=== PATIENT | male | born 1990 | race Caucasian/White ===

== ENCOUNTER 2022-09-18 01:30 | Emergency (ER) | payer MEDICAID ==
[~2022-09-18] VITALS: Ht 175.3 cm; Wt 95.3 kg
[2022-09-18 01:36] VITALS: BP 130/87; PULSE 89; RESP 16; TEMP 97.7; O2SAT 99
--- NOTE | 2022-09-18 01:40 | NUR ---
TO LOBBY A/W BED AMBULATORY
== END 2022-09-18 01:50 | disposition left against medical advice (07) ==
LOC: MED 01:30
DX: M79.601 Pain in right arm (principal); M79.602 Pain in left arm; Z53.21 Procedure and treatment not carried out due to patient leaving prior to being seen by health care provider
CPT/HCPCS: 99281

== ENCOUNTER 2023-11-13 02:05 | Emergency (ER) | payer MEDICAID ==
[~2023-11-13] VITALS: Ht 175.3 cm; Wt 96.2 kg
[2023-11-13 02:09] VITALS: BP 117/84; PULSE 100; RESP 18; TEMP 97.1; O2SAT 100
[2023-11-13 03:01] VITALS: O2SAT 99
[2023-11-13] MEDS: ACETAMINOPHEN EXTRA STRENGTH 500 MG TAB PO ONE (03:33)
[2023-11-13] MEDS: KETOROLAC 30 MG/ML VIAL IVP ONE (03:33)
[2023-11-13 03:36] LABS: BASOPHILS % (AUTO) 0.3 % (0.0-2.0); EOSINOPHILS % (AUTO) 0.1 % (0.0-4.0); HEMATOCRIT 34.9 % (36-52); HEMOGLOBIN 12.2 g/dL (12.0-18.0); LYMPHOCYTES # (AUTO) 2.2 K/uL (2.0-11.5); LYMPHOCYTES % (AUTO) 26.5 % (20.5-51.1); MEAN CORPUSCULAR HEMOGLOBIN 29 pg (27-31); MEAN CORPUSCULAR HGB CONC 35 g/dL (33-37); MEAN CORPUSCULAR VOLUME 83.6 fL (80-94); MONOCYTES # (AUTO) 1.1 K/uL (0.8-1.0); MONOCYTES % (AUTO) 13.2 % (1.7-9.3); NEUTROPHILS % (AUTO) 59.9 % (42.2-75.2); PLATELET COUNT (AUTO) 244 K/uL (140-450); RED BLOOD CELL COUNT(AUTO) 4.17 MIL/uL (4.20-6.10); RED CELL DISTRIBUTION WIDTH 13.5 % (11.6-13.7); WHITE BLOOD COUNT (AUTO) 8.4 K/uL (4.8-10.8)
[2023-11-13 03:49] LABS: ANION GAP 8.3 (8-16); CALCIUM 8.5 mg/dL (8.5-10.1); CARBON DIOXIDE 32.6 mmol/L (21-32); POTASSIUM 3.9 mmol/L (3.5-5.1)
[2023-11-13] MEDS ORDERED: CEPH-588 PO (04:25)
[2023-11-13 04:39] VITALS: BP 127/78; PULSE 88; RESP 16; TEMP 98.1; O2SAT 98
[2023-11-13] MEDS ORDERED: cephALEXin 500 MG CAP ONE (04:42)
[2023-11-13] MEDS: cephALEXin 500 MG CAP PO ONE (04:43)
== END 2023-11-13 04:39 | disposition home or self-care (01) ==
LOC: MED 02:05
DX: L03.116 Cellulitis of left lower limb (principal); Z79.899 Other long term (current) drug therapy
CPT/HCPCS: 36415; 80048; 83880; 85025; 96374; 99283; J1885

== ENCOUNTER 2023-11-27 05:10 | Inpatient (IN) | payer MEDICAID ==
[~2023-11-27] VITALS: Ht 172.7 cm; Wt 118.8 kg
[~2023-11-27 05:10] MED LIST: CEPH-588 PO
[2023-11-27 05:16] VITALS: BP 128/71; PULSE 60; RESP 18; TEMP 98.2; O2SAT 99
[2023-11-27 05:46] VITALS: O2SAT 100
[2023-11-27] MEDS ORDERED: cefTRIAXone 1,000 MG VIAL ONE (06:07)
[2023-11-27] MEDS: NACL 0.9% 1,000 ML IV SCH (06:12)
[2023-11-27] MEDS: cefTRIAXone 1,000 MG in DEXT 5% MINI-BAG PLUS 50 ML IV ONE (06:13)
[2023-11-27 06:18] LABS: BASOPHILS % (AUTO) 0.5 % (0.0-2.0); LYMPHOCYTES # (AUTO) 1.7 K/uL (2.0-11.5); LYMPHOCYTES % (AUTO) 21.8 % (20.5-51.1); MEAN CORPUSCULAR HEMOGLOBIN 29 pg (27-31); MEAN CORPUSCULAR HGB CONC 35 g/dL (33-37); MEAN CORPUSCULAR VOLUME 83.5 fL (80-94); MONOCYTES # (AUTO) 0.9 K/uL (0.8-1.0); MONOCYTES % (AUTO) 12.4 % (1.7-9.3); NEUTROPHILS % (AUTO) 65.3 % (42.2-75.2); PLATELET COUNT (AUTO) 239 K/uL (140-450); RED BLOOD CELL COUNT(AUTO) 4.43 MIL/uL (4.20-6.10); RED CELL DISTRIBUTION WIDTH 13.4 % (11.6-13.7); WHITE BLOOD COUNT (AUTO) 7.6 K/uL (4.8-10.8)
[2023-11-27] MEDS: KETOROLAC 30 MG/ML VIAL IVP ONE (06:22)
[2023-11-27 06:47] LABS: LACTIC ACID 0.7 mmol/L (0.4-2.0)
[2023-11-27 07:03] LABS: ANION GAP 5.3 (8-16); CALCIUM 8.4 mg/dL (8.5-10.1); CARBON DIOXIDE 33.4 mmol/L (21-32); CREATININE 0.9 mg/dL (0.6-1.3); POTASSIUM 3.7 mmol/L (3.5-5.1)
[2023-11-27 07:44] LABS: ALANINE AMINOTRANSFERASE 27 U/L (12-78); ALBUMIN 3.4 g/dL (3.4-5.0); ALKALINE PHOSPHATASE 120 U/L (50-136); ASPARTATE AMINOTRANSFERASE 18 U/L (15-37); BILIRUBIN,DIRECT 0.1 mg/dL (0.0-0.3); TOTAL BILIRUBIN 0.7 mg/dL (0.0-1.0)
[2023-11-27] MEDS ORDERED: POTASSIUM CHLORIDE 10 MEQ TABER PO PRN (10:20)
[2023-11-27] MEDS ORDERED: KCL 20 MEQ IN 100 mL PREMIX 200 ML IV PRN (10:20)
[2023-11-27] MEDS ORDERED: MAG SULF 2000 MG/WATER PREMIX 50 ML IV PRN (10:20)
[2023-11-27] MEDS ORDERED: MAGNESIUM OXIDE 400 MG TAB PO PRN (10:20)
[2023-11-27 15:13] VITALS: PULSE 74; RESP 16; O2SAT 100
[2023-11-27 16:00] VITALS: BP 122/54; PULSE 74; RESP 16; TEMP 96.5; O2SAT 100
[2023-11-27 20:00] VITALS: BP 108/66; PULSE 83; RESP 16; TEMP 99; O2SAT 100; O2SAT 99
[2023-11-28 04:00] VITALS: BP 116/70; PULSE 80; RESP 19; TEMP 98.9; O2SAT 100
[2023-11-28 08:00] VITALS: BP 103/52; PULSE 86; RESP 18; TEMP 98.3; O2SAT 95
[2023-11-28 09:08] LABS: BASOPHILS % (AUTO) 0.4 % (0.0-2.0); HEMATOCRIT 35.2 % (36-52); HEMOGLOBIN 12.2 g/dL (12.0-18.0); LYMPHOCYTES # (AUTO) 1.8 K/uL (2.0-11.5); LYMPHOCYTES % (AUTO) 20.5 % (20.5-51.1); MEAN CORPUSCULAR HEMOGLOBIN 29 pg (27-31); MEAN CORPUSCULAR HGB CONC 35 g/dL (33-37); MEAN CORPUSCULAR VOLUME 83.2 fL (80-94); MONOCYTES # (AUTO) 0.8 K/uL (0.8-1.0); MONOCYTES % (AUTO) 9.4 % (1.7-9.3); NEUTROPHILS # (AUTO) 6.2 K/uL (1.8-7.7); NEUTROPHILS % (AUTO) 69.7 % (42.2-75.2); PLATELET COUNT (AUTO) 224 K/uL (140-450); RED BLOOD CELL COUNT(AUTO) 4.23 MIL/uL (4.20-6.10); RED CELL DISTRIBUTION WIDTH 13.1 % (11.6-13.7); WHITE BLOOD COUNT (AUTO) 8.9 K/uL (4.8-10.8)
[2023-11-28 10:25] LABS: ALBUMIN 2.8 g/dL (3.4-5.0); ANION GAP 11.2 (8-16); CALCIUM 7.9 mg/dL (8.5-10.1); CARBON DIOXIDE 29.3 mmol/L (21-32); CREATININE 0.9 mg/dL (0.6-1.3); POTASSIUM 3.5 mmol/L (3.5-5.1); TOTAL BILIRUBIN 0.9 mg/dL (0.0-1.0)
[2023-11-28 12:00] VITALS: BP 103/52; PULSE 86; RESP 18; TEMP 98.3; O2SAT 95
[2023-11-28 16:00] VITALS: BP 101/53; PULSE 81; RESP 18; TEMP 97.8; O2SAT 100
[2023-11-28 20:00] VITALS: BP 122/72; PULSE 82; RESP 18; TEMP 96.7; O2SAT 95; O2SAT 97
[2023-11-29 04:00] VITALS: BP 116/60; PULSE 78; RESP 18; TEMP 98.5; O2SAT 99
[2023-11-29 05:00] LABS: BASOPHILS % (AUTO) 0.7 % (0.0-2.0); EOSINOPHILS % (AUTO) 0.1 % (0.0-4.0); HEMATOCRIT 36.7 % (36-52); HEMOGLOBIN 12.7 g/dL (12.0-18.0); LYMPHOCYTES # (AUTO) 2.3 K/uL (2.0-11.5); MEAN CORPUSCULAR HEMOGLOBIN 29 pg (27-31); MEAN CORPUSCULAR HGB CONC 35 g/dL (33-37); MEAN CORPUSCULAR VOLUME 83.2 fL (80-94); MONOCYTES # (AUTO) 0.8 K/uL (0.8-1.0); MONOCYTES % (AUTO) 12.4 % (1.7-9.3); NEUTROPHILS # (AUTO) 3.3 K/uL (1.8-7.7); NEUTROPHILS % (AUTO) 50.8 % (42.2-75.2); PLATELET COUNT (AUTO) 241 K/uL (140-450); RED BLOOD CELL COUNT(AUTO) 4.41 MIL/uL (4.20-6.10); RED CELL DISTRIBUTION WIDTH 13.2 % (11.6-13.7); WHITE BLOOD COUNT (AUTO) 6.5 K/uL (4.8-10.8)
[2023-11-29 05:43] LABS: ALBUMIN 2.9 g/dL (3.4-5.0); ANION GAP 9.1 (8-16); CALCIUM 8.4 mg/dL (8.5-10.1); CARBON DIOXIDE 30.8 mmol/L (21-32); CREATININE 0.8 mg/dL (0.6-1.3); POTASSIUM 3.9 mmol/L (3.5-5.1); TOTAL BILIRUBIN 0.8 mg/dL (0.0-1.0); TOTAL PROTEIN, SERUM 6.6 g/dL (6.4-8.2)
[2023-11-29 08:00] VITALS: BP 105/52; PULSE 84; RESP 18; TEMP 97.8; O2SAT 98
[2023-11-29] MEDS ORDERED: CEPH-588 PO (09:20)
== END 2023-11-29 10:16 | disposition home or self-care (01) | DRG 383 ==
LOC: MED 05:10 → MTU 10:23 → MMU 14:28
PROVIDERS: ADMIT Student in an Organized Health Care Education/Training Program; ATTEND Student in an Organized Health Care Education/Training Program
DX: L03.116 Cellulitis of left lower limb (principal); E44.1 Mild protein-calorie malnutrition; Z68.39 Body mass index [BMI] 39.0-39.9, adult; E83.51 Hypocalcemia
CPT/HCPCS: 36415; 71045; 80048; 80053; 80076; 83605; 83880; 84484; 85025; 87040; 87081; 93005; 93971; 96361; 96365; 96375; 99285; J0696; J1885; J7060; Q0092